=== PATIENT | male | born 1955 | race Two or more races ===

== ENCOUNTER 2024-10-14 06:04 | Emergency (ER) | payer OTHER ==
[~2024-10-14] VITALS: Ht 177.8 cm; Wt 99.8 kg
[2024-10-14] MEDS ORDERED: PROMETHAZINE HCL 50 MG/ML AMPUL IM STA (06:45)
[2024-10-14] MEDS ORDERED: PROMETHAZINE HCL 50 MG/ML AMPUL IM ONE (07:21)
[2024-10-14 08:05] LABS: BASO % 1.1 % (0.1-1.2); EOS # 0.19 (0.04-0.54); EOS % 3.4 % (0.7-7.0); HEMATOCRIT 41.3 % (40.1-51.0); HEMOGLOBIN 14.3 g/dL (13.7-17.5); LYMPH # 1.43 (1.18-3.74); LYMPH % 25.5 % (19.3-53.1); MEAN CORPUSCULAR HEMOGLOBIN 30.4 pg (25.6-32.2); MONO # 0.47 (0.24-0.82); MONO % 8.4 % (4.7-12.5); NEUT # 3.43 (1.56-6.13); NEUT % 61.2 % (34.0-71.1); PLATELET COUNT 262 K/uL (163-369); RED CELL DISTRIBUTION WIDTH 12.2 % (11.6-14.4)
[2024-10-14 08:17] LABS: PH,URINE 6.5 (5.0-8.0); URINE APPEARANCE Clear; URINE BILIRRUBIN Negative (NEGATIVE); URINE BLOOD Negative; URINE COLOR Yellow; URINE GLUCOSE Negative (NEGATIVE); URINE KETONE Negative (NEGATIVE); URINE LEUKOCYTE Negative; URINE NITRATE Negative; URINE PROTEIN Negative (NEGATIVE); URINE UROBILINOGEN 0.2 E.U./dl
[2024-10-14 08:21] LABS: URINE RBC 5.7 uL (0.0-20.8); URINE WBC 5.5 uL (0.0-23.2)
[2024-10-14 08:23] LABS: ALBUMIN 3.5 gm/dL (3.4-5.0); BILIRUBIN TOTAL 0.52 mg/dL (0.3-1.2); CALCIUM 8.8 mg/dL (8.5-10.1); CREATININE SERUM 0.98 mg/dL (0.70-1.30); GFR 75.83; GLOBULINA 3.6 G/DL (2.4-3.5); POTASSIUM 4.23 mEq/L (3.5-5.1); TOTAL PROTEIN 7.1 gm/dL (6.4-8.2)
[2024-10-14 08:24] LABS: URINE BACTERIA 3.6 uL (0.0-1933); URINE EPITHELIAL CELLS 0.6 uL (0.0-38.8)
[2024-10-14] MEDS ORDERED: MECLIZINE HCL 25 MG TABLET PO ONE ×2 (10:00)
[2024-10-14] MEDS ORDERED: KETOROLAC TROMETHAMINE 30 MG VIAL ONE (10:13)
[2024-10-14] MEDS ORDERED: KETOROLAC TROMETHAMINE 30 MG VIAL IV ONE (10:15)
== END 2024-10-14 12:00 | disposition home or self-care (01) ==
LOC: ER 06:10
PROVIDERS: General Practice
DX: R42 Dizziness and giddiness (principal)
CPT/HCPCS: 36415; 70450; 93005; 96365; 96372; 99284; J1885; J2250